=== PATIENT | female | born 1955 | race Caucasian/White ===

== ENCOUNTER 2020-04-13 08:15 | Day surgery (SDC) | payer OTHER, MEDICAID ==
[~2020-04-13] VITALS: Ht 167.6 cm; Wt 72.1 kg
[~2020-04-13 08:15] MED LIST: APIX2.5T PO; CALC600T57 PO; CARB200T4 PO; CHOL100055 PO; CYAN50008 PO; ETAN50IN5 SUBCUT; FERR-20 PO; FOLI400T34 PO; HYDR-531 PO; LEVO25TA6 PO; MELO1TAB73 PO; METH750T3 PO; OMEP20TA PO; OXYB5TAB61 PO; PRIM50TA5 PO; ROPI2TAB4 PO; SERT-377 PO; SIMV-8 PO; SULF500T8 PO; TOPI15CA10 PO
[2020-04-13] MEDS ORDERED: VANCOMYCIN HCL 1000 MG VL ONE (09:08)
[2020-04-13] MEDS: LIDOCAINE 1% HCL (LOCAL ANESTH.) INJ 20ML MDV ONE ×2 (09:27→09:55)
[2020-04-13] MEDS ORDERED: BUPIVACAINE 0.25% INJ 50ML VIAL ONE (09:27)
[2020-04-13] MEDS ORDERED: fentaNYL CITRATE 100 MCG/2 ML VL ONE (09:40)
[2020-04-13] MEDS ORDERED: PROPOFOL 10 MG/ML 20 ML IV ONE (09:55)
[2020-04-13] MEDS ORDERED: ROCURONIUM 10MG/ML 10ML VIAL IV ONE (09:55)
[2020-04-13] MEDS ORDERED: VANCOMYCIN 1GM/250ML 250 ML IV SCH (10:15)
[2020-04-13] MEDS ORDERED: fentaNYL CITRATE 100 MCG/2 ML VL IV ONE (10:29)
[2020-04-13] MEDS ORDERED: ePHEDrine SULFATE 50 MG/ML AMP IV PRN (10:30)
[2020-04-13] MEDS ORDERED: hydrALAZINE HCL 20 MG/ML VL IV PRN (10:30)
[2020-04-13] MEDS ORDERED: fentaNYL CITRATE 100 MCG/2 ML VL IV PRN (10:30)
[2020-04-13 12:10] VITALS: BP 115/71
== END 2020-04-13 12:18 | disposition home or self-care (01) ==
LOC: SUR 08:15
PROVIDERS: ATTEND Orthopaedic Surgery Adult Reconstructive Orthopaedic Surgery
DX: S92.351A Displaced fracture of fifth metatarsal bone, right foot, initial encounter for closed fracture (principal); J44.9 Chronic obstructive pulmonary disease, unspecified; M19.90 Unspecified osteoarthritis, unspecified site; Z88.0 Allergy status to penicillin; Z88.8 Allergy status to other drugs, medicaments and biological substances; Z11.59 Encounter for screening for other viral diseases; Z90.710 Acquired absence of both cervix and uterus; Z98.890 Other specified postprocedural states; Z79.899 Other long term (current) drug therapy; X58.XXXA Exposure to other specified factors, initial encounter; Y93.89 Activity, other specified; Y92.89 Other specified places as the place of occurrence of the external cause; Y99.8 Other external cause status
CPT/HCPCS: 28322; 28485; 73660; 76000; J2001; J2704; J3010; J3370; J3490; J7050; U0003